=== PATIENT | male | born 2000 | race Asian ===

== ENCOUNTER → 2024-01-31 15:47 | Outpatient (CLI) | payer OTHER, SELFPAY ==
--- NOTE | 2024-01-31 | DI.MRI.S_ITS ---
PROCEDURE: MR LUMBAR SPINE WO CON INDICATIONS: Radiculopathy, sacral and sacrococcygeal region TECHNIQUE: Noncontrast sagittal T1 spin echo and T2 fast echo, sagittal STIR, and T2 fast spin echo through the lumbar spine. In cases with scoliosis, additional coronal T2 fast spin echo may be performed. COMPARISON: None. FINDINGS: Image quality: Excellent. Alignment and Curvature: There is normal bony alignment. Bone Marrow: Marrow is of normal overall signal. No acute vertebral body compression fractures. Spinal Cord: Conus medullaris terminates at the L1 level. Visualized cord demonstrates normal signal and size. Paraspinous Soft Tissues: No paravertebral masses. T12-L1: Normal appearance. L1-L2: Normal appearance. L2-L3: Normal appearance. L3-L4: Disc space is maintained. Hypertrophic facet joints present. Mild central and no foraminal stenosis L4-L5: Disc space is maintained. Broad-based disc bulge noted with broad base bilateral lateral recess the effacement. Mild central stenosis. Mild right and no left foraminal stenosis L5-S1: Disc space is maintained. Mild disc bulge present. No central stenosis. No foraminal stenosis IMPRESSION: Mild degenerative disc disease in the lower lumbar spine results in mild central stenosis and bilateral lateral recess effacement this at L4-5 Approved by: Daniel Dawkins M.D. on 01/31/2024 at 17:43
== END ==
PROVIDERS: Referring Provider Internal Medicine; Visit Provider Internal Medicine
DX: M51.16 Intervertebral disc disorders with radiculopathy, lumbar region (principal); M48.061 Spinal stenosis, lumbar region without neurogenic claudication
CPT/HCPCS: 72148

== ENCOUNTER → 2024-02-18 12:01 | Outpatient (CLI) | payer OTHER, SELFPAY ==
--- NOTE | 2024-02-18 12:01 | DI.US.S_ITS ---
PROCEDURE: US RENAL COMPLETE INDICATIONS: Essential (primary) hypertension TECHNIQUE: Real-time scanning was performed of the kidneys and bladder, with image documentation. COMPARISON: None. FINDINGS: Kidneys: Kidneys are normal in size. Right kidney measures 12.0 cm long; left kidney measures 11.0 cm long. Right renal cortical thickness is 1.8 cm; left renal cortical thickness is 2.2 cm. Renal cortical echotexture is normal. No hydronephrosis or nephrolithiasis. No suspicious solid mass lesions. Bladder: Pre-void bladder volume is 488 mL. Post-void residual is 61 mL. Pre-void images demonstrate no intraluminal masses or stones. On pre-void images, neither ureteral jets are noted with color Doppler interrogation. (Of note, ureteral jets may not be detectable in up to 25% of cases due to insufficient differences in specific gravity between ureteral and bladder urine). Miscellaneous: No free pelvic fluid. Limited visualization of the liver demonstrates markedly increased echogenicity. IMPRESSION: 1. No hydronephrosis. 2. Moderate postvoid residual. 3. Increased hepatic echogenicity noted likely related to fatty infiltration of the liver but other sources of hepatocellular disease cannot be excluded. Dictated by: Pearl Rosa M.D. on 02/18/2024 at 16:17 Approved by: Pearl Rosa M.D. on 02/18/2024 at 16:19
== END ==
PROVIDERS: Referring Provider Internal Medicine; Visit Provider Internal Medicine
DX: I10 Essential (primary) hypertension (principal)
CPT/HCPCS: 76770

== ENCOUNTER 2025-02-25 06:23 | Day surgery (SDC) | payer OTHER, SELFPAY ==
[2025-02-20 10:51] VITALS: BMI 29.5
[2025-02-25] VITALS (10 sets, daily range): BP systolic 122–153; BP diastolic 60–101; PULSE 70–89; RESP 11–18; TEMP 36.1–36.3; O2SAT 97–100; BMI 29.5
[2025-02-25] MEDS: LACTATED RINGERS 1,000 ML 42 ML IV ×2 (07:19→08:54)
--- NOTE | 2025-02-25 07:37 | PM.HP.IH.1 ---
History of Present Illness History of Present Illness Date Patient Seen: 02/25/25 Time Patient Seen: 07:37 Chief complaint: Inguinal hernia repair w/mesh robotic R poss L Narrative: Rodolfo is a 24 year old man with a right inguinal hernia. See office note for details. [facility] Medical History (Updated 02/20/25 @ 12:19 by Dinora Kapoor RN) Anxiety SVT (supraventricular tachycardia) Chronic lower back pain Migraine Hypertension Surgical History (Updated 02/20/25 @ 12:16 by Dinora Kapoor RN) History of cardiac radiofrequency ablation (12/30/24) Social History household members: spouse Smoking Status: Current every day smoker alcohol intake: current Meds Home Medications and Allergies Home Medications ?Medication ?Instructions ?Recorded ?Confirmed ?Type amlodipine 5 mg tablet 5 mg PO DAILY 01/13/25 02/25/25 History buspirone 15 mg tablet 15 mg PO TID 01/13/25 01/13/25 History fluoxetine 20 mg capsule (Prozac) 20 mg PO DAILY 01/13/25 01/13/25 History hydrochlorothiazide 50 mg tablet 50 mg PO DAILY 01/13/25 02/25/25 History lisinopril 40 mg tablet 40 mg PO DAILY 01/13/25 02/25/25 History metoprolol succinate 50 mg 50 mg PO DAILY 01/13/25 02/25/25 History tablet,extended release 24 hr Allergies Allergy/AdvReac Type Severity Reaction Status Date / Time No Known Drug Allergies Allergy Unverified 02/25/25 06:48 Exam Vital Signs (past 8 hours): - 02/25/25 07:02 Temperature 96.9 F L Pulse Rate 72 Respiratory Rate 16 Blood Pressure 144/101 H Pulse Oximetry 99 Oxygen Delivery Method Room Air Oxygen Delivery Method Room Air Const General: healthy appearing Assessment & Plan Assessment and plan (1) Right inguinal hernia: Status: Acute Plan Robotic right, possible left inguinal hernia with mesh Time-Based Coding :: [TOTAL MINUTES] spent with patient and on the chart (including review of chart, obtaining history, exam, reviewing outside data, placing orders, documenting exam and treatment plan, and counseling patient) on [DATE]. PROFEE Bagman/Woman Document charge(s): No
[2025-02-25] MEDS: CEFAZOLIN 2 GM/100 ML PREMIX 100 ML IV (08:00)
[2025-02-25] MEDS: BUPIVACAINE 0.5% (PF) 30 ML VIAL INJ (08:05)
--- NOTE | 2025-02-25 08:13 | SUR.OPER ---
Supine on padded OR bed with pink pads, head on pillow, arms padded and tucked at sides, legs uncrossed, safety belt at thigh, tape over blanket over lower legs . Face pillow placed over face per anesthesia.
--- NOTE | 2025-02-25 09:18 | P.OP_ITS ---
Operative Date/Time/Diagnoses Date of procedure: 02/25/25 Time of procedure: 09:18 Pre-op diagnosis: Right inguinal hernia Post-op diagnosis: same Procedure & Clinicians Procedure: Robotic right inguinal hernia repair with mesh Same procedure as scheduled: Yes Surgeon: Chi Gonzalez Child Welfare Director: Lee Cantu Anesthesia Type: General Operative Notes Findings: Small direct fat containing defect Applied: none Estimated Blood Loss (mL): 10 Procedure in detail: The patient was given preoperative antibiotics. The patient was brought to the operating room, placed on the table in the supine position with the arms tucked and general anesthesia was induced. The abdomen was prepped and draped in the usual fashion. A time-out was performed. A 1 cm transverse incision was created superior to the umbilicus and dissection was carried down to the fascia. The fascia was grasped with a Martha clamp to elevate the abdominal wall. The fascia was scored transversely with cautery. A Peon clamp was used to britton the peritoneum. The 12 mm robotic port was placed and the abdomen was insufflated to 15 mmHg. The camera was inserted, there was no evidence of any injury from the entry. There was no obvious indirect defect inguinal hernia. 8 mm ports were placed under direct vision in the mid left and mid right abdomen. The patient was positioned in Trendelenburg. The robot was docked. We created right peritoneal flap. The peritoneum was dissected off the right cord structures and the Jamshid's ligament was exposed. It appeared the hernia was a small direct defect containing fatty tissue. A large right Bard mesh was brought in and placed over the defect with the medial edge overlapping the pubic symphysis. We then closed the peritoneal flap with a running 3-0 barbed suture. We took one last look around the abdomen and saw no other abnormalities. The suture was removed and accounted for. The robot was undocked. The 8 mm ports were removed under direct vision. The abdomen was desufflated. The 12 mm port was removed. Additional local was injected into the fascia and the fascial incision was closed with 2 interrupted 0 Vicryl sutures. The skin incisions were closed with 4 Monocryl, Steri-Strips and Band-Aids. Lee WOODS provided assistance with exposure, retraction and closure of incisions. Complications: none Post-operative Condition: stable Disposition: PACU
[2025-02-25] MEDS: OXYCODONE/ACETAMINOPHEN 5/325 TABLET 1 TAB PO ×2 (09:47→10:19)
[2025-02-25] MEDS: hydrOXYzine 50 MG/ML INJ 25 MG IM (09:48)
[2025-02-25] MEDS: HYDROMORPHONE 1 MG INJ IV ×3 (09:49→10:05)
[2025-02-25] MEDS: fentaNYL 100 MCG/2 ML INJ IV (10:17)
[2025-02-25] MEDS: METOCLOPRAMIDE 10 MG/2 ML INJ IV (10:37)
== END 2025-02-25 11:15 | disposition home or self-care (01) ==
PROVIDERS: PCP Internal Medicine; Referring Provider Surgery; Visit Provider Surgery
PROC: 0YQ54ZZ Repair Right Inguinal Region, Percutaneous Endoscopic Approach (ICD-10-PCS; CPT 49650; principal; 2025-02-25 07:45)
DX: K40.90 Unilateral inguinal hernia, without obstruction or gangrene, not specified as recurrent (principal); F17.210 Nicotine dependence, cigarettes, uncomplicated
CPT/HCPCS: 49650; S2900; C1781; J0330; J0690; J1100; J1171; J2250; J2405; J2704; J2765; J3010; J3410

== ENCOUNTER → 2025-04-27 09:28 | Outpatient (CLI) | payer OTHER, SELFPAY ==
--- NOTE | 2025-04-27 09:33 | DI.RAD.S_ITS ---
PROCEDURE: XR CHEST 2V INDICATIONS: SoB, Back Pain TECHNIQUE: 2 views of the chest were acquired. COMPARISON: None. FINDINGS: Surgical changes and devices: None. Lungs and pleura: Lungs are clear. No pleural effusions or pneumothorax. Mediastinum: Mediastinal contours are normal. Heart size is normal. Bones and chest wall: No suspicious bony abnormalities. Soft tissues appear unremarkable. IMPRESSION: No acute cardiopulmonary abnormality is seen. Dictated by: Donaldo Veronica M.D. on 04/27/2025 at 11:24 Approved by: Donaldo Veronica M.D. on 04/27/2025 at 11:24
--- NOTE | 2025-04-27 09:33 | DI.RAD.S_ITS ---
PROCEDURE: XR LUMBAR SPINE 2-3V INDICATIONS: SoB, Back Pain TECHNIQUE: 3 views of the lumbar spine were acquired. COMPARISON: None. FINDINGS: Bones: 5 [id number] vertebrae are present. There is normal bony alignment. No vertebral body compression fractures. No suspicious bony lesions. Soft tissues: Overlying bowel gas pattern is normal. No suspicious soft tissue calcifications. IMPRESSION: No acute bony abnormality. No significant degenerative change. Dictated by: Donaldo Veronica M.D. on 04/27/2025 at 11:25 Approved by: Doanldo Veronica M.D. on 04/27/2025 at 11:25
--- NOTE | 2025-04-27 09:38 | EKG_ITS ---
[address] [address] Test Date: 2025-04-27 Pat Name: Rodolfo Gómez Department: DEFAULT Room: Gender: Male Boarder Hand: ADRIANE : 2000 Requested By: Order Number: [id number] Reading MD: Ramón Soto MD Measurements Intervals [place] Rate: 95 P: 47 TN: 138 QRS: 62 QRSD: 108 T: 32 QT: 368 QTc: 462 Interpretive Statements Normal sinus rhythm Electronically Signed On 04-27-2025 11:47:30 PDT by Ramón Soto MD
--- NOTE | 2025-04-27 12:50 | DI.ECHO.S_ITS ---
[place] [facility] : : [address] : : [place] : : [id number] : : Phone: [phone] Echocardiogram Report + + :Name: ARUN CARPIO JR Study Date: 04/27/2025 Height: 70 in : :[facility] ReadingLocation: Weight: 210 lb : : Gender: Male BSA: 2.1 m2 : :: 2000 Age: 24 yrs BP: 151/99 mmHg: :Reason For Study: SHORTNESS OF BREATH : :Ordering Physician: HANNAH, : :DOMI Performed By: Wolfgang Valentine : :Referring: DOMI YOUNG : + + Interpretation Summary - The left ventricular contractility is normal. Estimated ejection fraction is greater than 55% with no segmental wall motion abnormalities. No LVH. Normal diastolic function. - The right ventricular contractility is normal. - All cardiac chambers are of normal size. - No significant valvular abnormalities. - No obvious intracardiac shunts. - No obvious intracardiac masses nor thrombi. - No hemodynamically significant pericardial effusion. - Low right-sided filling pressures. -Borderline enlargement of the aortic root without obvious dissection. Conclusion: Normal biventricular function with no significant valvular abnormalities. Borderline aortic root enlargement without obvious dissection.. Procedure: A two-dimensional transthoracic echocardiogram with color flow and Doppler was performed. The study quality was technically good. There is no prior echocardiogram noted for this patient. The patient was in normal sinus rhythm during the exam. Left Ventricle: The left ventricle is normal in size. There is normal left ventricular wall thickness. There is no ventricular septal defect visualized. The ejection fraction is estimated to be 55-60%. There are no focal wall motion abnormalities. Diastolic parameters suggest probable normal left ventricular diastolic function and normal filling pressures. Right Ventricle: The right ventricle is normal in size and function. Atria: The left atrial size is normal. Right atrial size is normal. There is no Doppler evidence for an interatrial shunt. Mitral Valve: The mitral valve leaflets appear normal. There is no evidence of stenosis, fluttering, or prolapse. There is no mitral regurgitation noted. Aortic Valve: The aortic valve is trileaflet. The aortic valve opens well. There is trace aortic regurgitation. Tricuspid Valve: The tricuspid valve leaflets are thin and pliable. No tricuspid regurgitation. Pulmonic Valve: The pulmonic valve leaflets are thin and pliable; valve motion is normal. There is no pulmonic valvular regurgitation. Great Vessels: The aortic root is mildly dilated. The dimensions of the ascending aorta are normal. The pulmonary artery is normal size. The IVC is of normal diameter and collapses greater than 50% with a sniff. This suggests a low right atrial pressure of 3 mm Hg. Pericardium/ Pleura There is no pericardial effusion. There is no pleural effusion. MMode/2D Measurements & Calculations LVIDd: 5.1 cm LVOT diam: 2.6 cm LVIDs: 3.1 cm Ao root diam: 4.0 cm FS: 38.9 % asc Aorta Diam: 3.2 cm EPSS: 0.49 cm IVSd: 0.94 cm LVPWd: 0.89 cm LV plummer. diameter/BSA (cm/m^2): 2.4 LV sys. diameter/BSA (cm/m^2): 1.5 LA A2 area: 21.7 cm2 RA long axis: 5.0 cm LA A4 area: 16.9 cm2 RA area: 17.0 cm2 LA length (vol): 5.1 cm RA vol: 49.1 ml LA vol: 60.5 ml RA : 23.0 ml/m2 LA vol index: 28.4 ml/m2 IVC diam: 1.8 cm RVD1 (basal): 3.4 cm RVD2 (mid): 2.5 cm TAPSE: 2.7 cm Doppler Measurements & Calculations Ao V2 max: 104.7 cm/sec LVOT Max Abraham: 81.2 cm/sec Ao V2 mean: 82.4 cm/sec LV V1 max P.6 mmHg Ao max P.4 mmHg LV V1 VTI: 18.0 cm Ao mean P.9 mmHg PRIYA(I,D): 4.2 cm2 Ao V2 VTI: 22.9 cm PRIYA(V,D): 4.1 cm2 sev ratio: 0.79 PRIYA indexed to BSA (cm^2/m^2): 2.0 MV E max abraham: 76.2 cm/sec PA V2 max: 93.6 cm/sec MV A max abraham: 50.3 cm/sec PA V2 mean: 66.4 cm/sec MV E/A: 1.5 PA mean P.9 mmHg Med Peak E' Abraham: 9.9 cm/sec PA pr(Accel): 37.9 mmHg E/E' med: 7.7 Lat Peak E' Abraham: 10.6 cm/sec E/E' lat: 7.2 E/e' average: 7.4 MV dec time: 0.18 sec SV(LVOT): 95.7 ml Reading Physician:KYRA
== END ==
PROVIDERS: PCP Internal Medicine; Referring Provider Chiropractor; Visit Provider Chiropractor
DX: R06.02 Shortness of breath (principal); R00.0 Tachycardia, unspecified; M54.9 Dorsalgia, unspecified; I77.89 Other specified disorders of arteries and arterioles
CPT/HCPCS: 71046; 72100; 93005; 93306